=== PATIENT | female | born 2000 | race Caucasian/White ===

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

== ENCOUNTER 2020-09-19 08:17 | Emergency (ER) | payer OTHER ==
[~2020-09-19] VITALS: Ht 162.6 cm; Wt 90.7 kg
[2020-09-19 08:21] VITALS: BP 121/75
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
--- NOTE | 2020-09-19 08:45 | NUR ---
MD AT BEDSIDE ASSESSING PT
[2020-09-19 08:56] LABS: BASOPHILS # (AUTO) 0.2 K/uL (0.00-0.22); BASOPHILS % (AUTO) 1.5 % (0.0-2.0); EOSINOPHILS # (AUTO) 0.3 K/uL (0-0.4); EOSINOPHILS % (AUTO) 3.3 % (0.0-4.0); HEMATOCRIT 39.2 % (36-48); HEMOGLOBIN 12.8 g/dL (12.0-16.0); LYMPHOCYTES # (AUTO) 3.1 K/uL (2.5-16.5); LYMPHOCYTES % (AUTO) 30.6 % (20.5-51.1); MEAN CORPUSCULAR HEMOGLOBIN 25 pg (27-31); MEAN CORPUSCULAR HGB CONC 33 g/dL (33-37); MEAN CORPUSCULAR VOLUME 76.7 fL (80-94); MONOCYTES # (AUTO) 0.5 K/uL (0.8-1.0); MONOCYTES % (AUTO) 5.2 % (1.7-9.3); NEUTROPHILS # (AUTO) 6.1 K/uL (1.8-7.7); NEUTROPHILS % (AUTO) 59.4 % (42.2-75.2); PLATELET COUNT (AUTO) 408 K/uL (140-450); RED CELL DISTRIBUTION WIDTH 14.8 % (11.6-13.7); WHITE BLOOD COUNT (AUTO) 10.3 K/uL (4.5-11.0)
--- NOTE | 2020-09-19 08:57 | NUR ---
URINE SAMPLE COLLECTED AND WALKED TO LAB
--- NOTE | 2020-09-19 09:05 | NUR ---
Female In House Counsel accompanied female patient for Pelvic Exam. VAGINAL SAMPLES COLLECTED AND WALKED TO LAB
[2020-09-19 09:09] LABS: ALBUMIN 3.8 g/dL (3.4-5.0); ANION GAP 9.6 (8-16); CARBON DIOXIDE 29.3 mmol/L (21-32); CREATININE 0.8 mg/dL (0.6-1.3); POTASSIUM 3.9 mmol/L (3.5-5.1); TOTAL BILIRUBIN 0.6 mg/dL (0.0-1.0)
[2020-09-19] MEDS ORDERED: cefTRIAXone 500 MG in LIDOCAINE MPF 1% 1 ML IM ONE (09:10)
[2020-09-19] MEDS ORDERED: LIDOCAINE MPF 1% 5 ML ONE (09:12)
[2020-09-19] MEDS ORDERED: cefTRIAXone 500 MG VIAL ONE (09:12)
--- NOTE | 2020-09-19 09:20 | NUR ---
ULTRASOUND AT BEDSIDE
[2020-09-19] MEDS ORDERED: METR500T1 PO (10:30)
[2020-09-19] MEDS ORDERED: DOXY-487 PO (10:31)
[2020-09-19 10:38] VITALS: BP 121/75
--- NOTE | 2020-09-19 10:38 | NUR ---
Patient discharged with v/s stable. Written and verbal after care instructions given and explained. Patient alert, oriented and verbalized understanding of instructions. Ambulatory with steady gait. All questions addressed prior to discharge. ID band removed. Patient advised to follow up with PMD. Rx of DOXYCYCLINE AND FLAGYL given. Patient educated on indication of medication including possible reaction and side effects. Opportunity to ask questions provided and answered.
--- NOTE | 2020-09-21 12:52 | NUR ---
LATE ENTRY---Culture results received from lab. Results shown to Dr. Pollock. Chlamydia POSITIVE.
--- NOTE | 2020-09-21 13:13 | NUR ---
LATE ENTRY---Culture results received from lab. Results shown to Dr. Pollock . No new orders needed at this time. Treatment appropriate.
== END 2020-09-19 10:38 | disposition home or self-care (01) ==
LOC: MED 08:17
DX: N76.0 Acute vaginitis (principal); B96.89 Other specified bacterial agents as the cause of diseases classified elsewhere; J45.909 Unspecified asthma, uncomplicated; Z79.899 Other long term (current) drug therapy; Z98.890 Other specified postprocedural states
CPT/HCPCS: 36415; 76830; 80053; 81002; 83690; 84702; 85025; 87210; 87491; 96372; 99284; J0696; J2001

== ENCOUNTER 2021-05-12 19:52 | Emergency (ER) | payer OTHER ==
[~2021-05-12] VITALS: Ht 162.6 cm; Wt 86.2 kg
[~2021-05-12 19:52] MED LIST changes: +DOXY-487 PO; +METR500T1 PO
--- NOTE | 2021-05-12 20:08 | NUR ---
TO LOBBY A/W BED AMBULATORY
[2021-05-12] MEDS ORDERED: KETOROLAC 30 MG/ML VIAL IM SCH (22:05)
[2021-05-12] MEDS ORDERED: ONDANSETRON 4 MG ODT PO SCH (22:05)
[2021-05-12] MEDS ORDERED: ALUMINUM HYD/MAG/SIMETHICONE 30 ML UDC PO SCH (22:05)
--- NOTE | 2021-05-12 22:13 | NUR ---
SEEN AND EXAMINED BY BRANDEE
--- NOTE | 2021-05-12 22:31 | NUR ---
PT TAKEN TO ER BED 07
--- NOTE | 2021-05-12 22:38 | NUR ---
PT ALERT AND ORIENTED X4. PT COMPLAINING OF STOMACH PAIN X1 DAY THAT STARTS AT HER BELLY BUTTON AND RADIATES TO LEFT AND RIGHT LOWER ABDOMEN AND LOWER BACK AREA. PT REPORTS PAIN 10/10, ACHING IN QUALITY. PT REPORTS PAIN IN STOMACH WHEN URINATING. PT REPORTS THAT SHE IS UNDER TREATMENT FOR LOWER BACK PAIN AND WAS SEEN AT ANOTHER MEDICAL FACILITY FOR THE BACK PAIN ON LAST WEEK. PT STATES SHE IS TAKING TRAMADOL FOR HER BACK PAIN. PT REPORTS ASTHMA HER ONLY MEDICAL HX.
--- NOTE | 2021-05-12 22:45 | NUR ---
PT TO RADIOLOGY.
--- NOTE | 2021-05-12 23:00 | NUR ---
PT BACK IN ROOM.
[2021-05-12 23:07] LABS: BASOPHILS # (AUTO) 0.1 K/uL (0.00-0.22); BASOPHILS % (AUTO) 0.8 % (0.0-2.0); EOSINOPHILS # (AUTO) 0.2 K/uL (0-0.4); EOSINOPHILS % (AUTO) 1.1 % (0.0-4.0); HEMATOCRIT 39.9 % (36-48); HEMOGLOBIN 12.8 g/dL (12.0-16.0); LYMPHOCYTES # (AUTO) 3.6 K/uL (2.5-16.5); MEAN CORPUSCULAR HEMOGLOBIN 25 pg (27-31); MEAN CORPUSCULAR HGB CONC 32 g/dL (33-37); MEAN CORPUSCULAR VOLUME 76.8 fL (80-94); MONOCYTES # (AUTO) 0.9 K/uL (0.8-1.0); MONOCYTES % (AUTO) 6.8 % (1.7-9.3); NEUTROPHILS % (AUTO) 65.3 % (42.2-75.2); PLATELET COUNT (AUTO) 487 K/uL (140-450); RED BLOOD CELL COUNT(AUTO) 5.19 MIL/uL (4.20-5.40); RED CELL DISTRIBUTION WIDTH 14.7 % (11.6-13.7); WHITE BLOOD COUNT (AUTO) 13.9 K/uL (4.8-10.8)
[2021-05-12 23:26] LABS: ANION GAP 12.3 (8-16); CARBON DIOXIDE 28.4 mmol/L (21-32); CREATININE 0.8 mg/dL (0.6-1.3); POTASSIUM 3.7 mmol/L (3.5-5.1)
[2021-05-12 23:32] LABS: ALBUMIN 3.7 g/dL (3.4-5.0); BILIRUBIN,DIRECT 0.1 mg/dL (0.0-0.3); MAGNESIUM 1.9 mg/dL (1.8-2.4); PHOSPHORUS 3.3 mg/dL (2.5-4.9); TOTAL BILIRUBIN 0.2 mg/dL (0.0-1.0)
[2021-05-13] MEDS ORDERED: DOCU-299 PO (00:48)
[2021-05-13 01:00] VITALS: BP 120/72
--- NOTE | 2021-05-13 01:01 | NUR ---
Patient discharged with v/s stable. Written and verbal after care instructions given and explained. Patient alert, oriented and verbalized understanding of instructions. Ambulatory with steady gait. All questions addressed prior to discharge. ID band removed. Patient advised to follow up with PMD. Rx of COLACE given. Patient educated on indication of medication including possible reaction and side effects. Opportunity to ask questions provided and answered.
== END 2021-05-13 00:58 | disposition home or self-care (01) ==
LOC: MED 19:52
DX: R10.84 Generalized abdominal pain (principal); R11.0 Nausea; J45.909 Unspecified asthma, uncomplicated; Z79.899 Other long term (current) drug therapy
CPT/HCPCS: 36415; 74176; 80048; 80076; 81002; 81025; 83690; 83735; 84100; 85025; 96372; 99284; J1885; Q0162

== ENCOUNTER 2022-10-02 20:25 | Emergency (ER) | payer OTHER ==
[~2022-10-02] VITALS: Ht 160 cm; Wt 100.7 kg
[~2022-10-02 20:25] MED LIST changes: +DOCU-299 PO
[2022-10-02 20:45] VITALS: BP 130/86
--- NOTE | 2022-10-02 20:48 | NUR ---
TO LOBBY A/W BED AMBULATORY
--- NOTE | 2022-10-02 21:50 | NUR ---
Patient taken to bed 12.
--- NOTE | 2022-10-02 21:52 | NUR ---
Patient BIB by family from home. C/O Cellulitis x 4 days. Patient reported, had swelling, redness and pain 10/10 left upper back for 4 days. PMHx: DENIES
[2022-10-02] MEDS ORDERED: LIDOCAINE/EPI 2% 1:100000 20 ML VIAL INJ ONE (22:20)
--- NOTE | 2022-10-02 22:40 | NUR ---
Dr. Pollock examining patient.
[2022-10-02] MEDS ORDERED: ACET-10509 PO (23:14)
[2022-10-02] MEDS ORDERED: SULF-59 PO (23:14)
[2022-10-02] MEDS ORDERED: ACETAMINOPHEN EXTRA STRENGTH 500 MG TAB PO ONE (23:20)
[2022-10-02 23:22] VITALS: BP 126/86
--- NOTE | 2022-10-02 23:22 | NUR ---
Patient discharged with v/s stable. Written and verbal after care instructions given and explained. Patient alert, oriented and verbalized understanding of instructions. Ambulatory with steady gait. All questions addressed prior to discharge. ID band removed. Patient advised to follow up with PMD. Rx of Tylenol and Bactrim given. Patient educated on indication of medication including possible reaction and side effects. Opportunity to ask questions provided and answered.
== END 2022-10-02 23:22 | disposition home or self-care (01) ==
LOC: MED 20:25
DX: L02.31 Cutaneous abscess of buttock (principal); L03.317 Cellulitis of buttock; J45.909 Unspecified asthma, uncomplicated; Z79.899 Other long term (current) drug therapy
CPT/HCPCS: 10060; 99284; J2001

== ENCOUNTER 2022-10-05 09:43 | Emergency (ER) | payer OTHER ==
[~2022-10-05] VITALS: Ht 160 cm; Wt 97.1 kg
[~2022-10-05 09:43] MED LIST changes: +ACET-10509 PO; +SULF-59 PO
[2022-10-05 09:46] VITALS: BP 126/69
--- NOTE | 2022-10-05 09:54 | NUR ---
AMBULATED TO BED IN NO DISTRESS.
--- NOTE | 2022-10-05 09:55 | NUR ---
The patient's care was reviewed and supervised by MARIA ANTONIA GUIDRY RN.
--- NOTE | 2022-10-05 10:11 | NUR ---
Patient being evaluated by physician at bedside.
[2022-10-05] MEDS ORDERED: ACETAMINOPHEN EXTRA STRENGTH 500 MG TAB PO ONE (10:25)
[2022-10-05] MEDS ORDERED: LIDOCAINE 1% 500 MG/ 50 ML VIAL INJ ONE (10:25)
--- NOTE | 2022-10-05 10:31 | NUR ---
posterior sacral lateral superior to left buttock. non adherent applied after irrigated.
[2022-10-05 10:57] VITALS: BP 121/85
--- NOTE | 2022-10-05 10:57 | NUR ---
Patient discharged with v/s stable. Written and verbal after care instructions given. Patient verbalized understanding. Ambulatory with steady gait. All questions addressed prior to discharge. Advised to follow up with PMD.
== END 2022-10-05 10:57 | disposition home or self-care (01) ==
LOC: MED 09:43
DX: L02.212 Cutaneous abscess of back [any part, except buttock and flank] (principal); J45.909 Unspecified asthma, uncomplicated; Z48.01 Encounter for change or removal of surgical wound dressing; Z98.890 Other specified postprocedural states; Z79.899 Other long term (current) drug therapy
CPT/HCPCS: 99282; J2001